=== PATIENT | male | born 1950 | race Caucasian/White ===

== ENCOUNTER 2017-02-28 01:23 | Emergency (ER) | payer MEDICARE, MEDICAID, OTHER ==
[~2017-02-28] VITALS: Ht 170.2 cm; Wt 57.7 kg
[2017-02-28 01:36] VITALS: BP 165/77; PULSE 92; RESP 18; O2SAT 98
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
[2017-02-28 03:48] VITALS: BP 118/75; PULSE 86; RESP 18; O2SAT 96
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
== END 2017-02-28 03:49 ==
LOC: SED 01:23
DX: S29.9XXA Unspecified injury of thorax, initial encounter (principal); S70.02XA Contusion of left hip, initial encounter; Y04.0XXA Assault by unarmed brawl or fight, initial encounter; Y93.89 Activity, other specified; Y92.9 Unspecified place or not applicable; Y99.8 Other external cause status; F17.200 Nicotine dependence, unspecified, uncomplicated

== ENCOUNTER 2017-03-06 09:48 | Emergency (ER) | payer MEDICARE, MEDICAID ==
[~2017-03-06] VITALS: Ht 172.7 cm; Wt 53.2 kg
[2017-03-06 09:49] VITALS: BP 187/95; PULSE 63; RESP 16; O2SAT 97
--- NOTE | 2017-03-06 10:03 | ED.REPORT ---
HPI-General Illness Date of Service Mar 06, 2017 ED Provider: Jhonny Vergara MD 66 y/o male with a hx of throat cancer, cirrhosis, Hep C, bronchitis, HTN, and reported alcohol, marijuana and cocaine use presents to the ED with multiple complaints, including generalized weakness, shaking, inability to focus, diffuse muscle cramps, nausea and dizziness. Yesterday pt experienced exacerbation of his chronic low back pain and was given a pain medication by his friend last night. He doesn't recall the name of the medication but believes it was Tramadol, he took this in combination with drinking heavily at a [place]. He reports that he also smoked crack yesterday. He woke up this morning feeling more fatigued, lightheaded, weak and generally lousy. Pt also reports chills, diaphoresis, and is particularly lightheaded when he stands up quickly, he reports cough and SOB (though both baseline from bronchitis and smoking). Pt denies LOC and fever. No neck stiffness. No rash. He is prescribed blood pressure medications. States that he is not taking them in months because he cannot afford to fill the prescription. He is not sure what blood pressure medication he is supposed to take. Nursing Notes Stated Complaint: VERTIGO Chief Complaint: General Complaint Nursing Notes Reviewed: Yes Allergies: Coded Allergies: No Known Allergies (Unverified , 02/28/17) General Time Seen by MD: 10:00 Chief Complaint Multip medical complaints Hx Obtained From: Patient Arrived By: Walk-in Sudden in Onset?: Yes Onset Occurred: Yesterday Symptom Duration: Constant Severity: Current: Moderate Severity: Maximum: Moderate Recent Healthcare: No recent hospitalization, Recent doctor visit Similar Sx Previous: No Past Medical History Past Medical History liver cancer kidney cancer skin cancer throat cancer bronchitis HTN Hep C Past Surgical History hip surgery facial surgery throat surgery Smoking History Current Every Day Smoker Social History "frequent alcohol use" Drug Use: Cocaine, THC Ambulatory Status Independent Review of Systems Full Review of Systems Constitutional: Reports: Chills, Weakness - generalized, Denies: Fever Respiratory: Reports: Non-productive cough, Shortness of breath GI: Reports: Nausea, Denies: Vomiting Male: Reports Dysuria, Reports Urination increased Skin: Reports Diaphoresis Neurologic: Reports: Dizziness, Shaking, Denies: Change LOC Physical Exam Vital Signs Vital Signs Date Time Temp Pulse Resp B/P Pulse Ox O2 Delivery O2 Flow Rate FiO2 4/21/17 13:53 74 18 177/82 97 Room Air 03/06/17 12:02 36.9 76 17 163/71 95 Room Air 03/06/17 12:02 36.8 76 18 163/71 95 Room Air 03/06/17 10:30 79 18 157/82 95 Room Air 03/06/17 09:49 35.9 63 16 187/95 97 Room Air Initial VS: Reviewed, Vital signs normal Respiratory: Breath sounds normal, Clear to auscultation, No respiratory distress Abdomen / GI: Soft, Non-tender, No guarding, No rebound, No distention General/Constitutional: Awake, Alert, No acute distress, Cooperative, Not toxic appearing Head / Eyes: Atraumatic Right eye absent. Left eye normal, PERRLA. ENT: Atraumatic Dry muscous membranes. Cardiovascular: Heart rate NL, Regular rhythm, Heart sounds NL, No gallop, No murmurs, No rubs Good radial pulses. Neurologic: Oriented X3, Speech NL, No motor deficits, No sensory deficits, CN II - XII intact Grossly neurologically intact. Cranial nerves grossly intact. Speaking in full sentences. Strength 5/5 in lower extremities. Research Physiologist strength 5/5 in upper extremities. No dysmetria finger to nose testing. No pronator drift. Romberg Test negative. Interpretation & Diagnostics Lab Results Interpretation Result Diagram: 03/06/17 1025 03/06/17 1025 Test 03/06/17 10:25 White Blood Count 12.1th/mm3 (3.8-10.1) Red Blood Count 3.44mil/mm3 (4.40-5.80) Hemoglobin 12.1g/dL (13.8-17.2) Hematocrit 34.6% (41.0-50.0) Mean Corpuscular Volume 100.6fL (81-100) Mean Corpuscular Hemoglobin 35.2pg (27.0-35.0) Mean Corpuscular Hemoglobin Concent 35.0% (32.0-37.0) Red Cell Distribution Width 16.6% (12.3-15.4) Platelet Count 274bil/L (150-400) Neutrophils (%) (Auto) 77.8% (40-74) Lymphocytes (%) (Auto) 12.7% (14-46) Monocytes (%) (Auto) 9.0% (4-12) Eosinophils (%) (Auto) 0.1% (0-5) Basophils (%) (Auto) 0.2% (0-3) Sodium Level 135mEq/L (134-144) Potassium Level 4.0mEq/L (3.5-5.2) Chloride Level 98mEq/L (97-108) Carbon Dioxide Level 21mmol/L (18-29) Blood Urea Nitrogen 6mg/dL (8-27) Creatinine 0.39mg/dL (0.76-1.27) Estimat Glomerular Filtration Rate 237mL/min (>59) Glucose Level 145mg/dL (60-99) Calcium Level 8.9mg/dL (8.5-10.1) Magnesium Level 1.9mg/dL (1.6-2.6) Total Bilirubin 1.6mg/dL (0.0-1.2) Aspartate Amino Transf (AST/SGOT) 73U/L (0-50) Alanine Aminotransferase (ALT/SGPT) 54U/L (0-44) Alkaline Phosphatase 82U/L (25-160) Total Protein 9.2g/dL (6.4-8.4) Albumin 3.6g/dL (3.4-5.0) Hold Rodriguez Top Tube Received (Received) ECG Interpretation ECG Interpretation: Normal sinus rhythm. Rate 66 Normal axis Non-specific IVCD No st segment elevation No acute t wave abdnormality No prior ekg for comparison Time: 10:49 Interpreted by: ED physician X-Ray Chest Interpretation Chest Xray Interpretation: IMPRESSION: No acute cardiopulmonary disease. Dictated by: Issac Roy M.D. on 03/06/2017 at 11:36 Approved by: Issac Roy M.D. on 03/06/2017 at 11:37 View: Portable, 1 view Interpretation / Wet Read by: Interpret - Radiologist Re-Eval/Medical Decision Med Decision/Clinical Course 66 y/o male with a hx of throat cancer, cirrhosis, Hep C, bronchitis, HTN, and reported alcohol, marijuana and cocaine use presents to the ED with multiple complaints, including generalized weakness, shaking, inability to focus, diffuse muscle cramps, nausea and dizziness. Yesterday pt experienced exacerbation of his chronic low back pain and was given a pain medication by his friend last night. He doesn't recall the name of the medication but believes it was Tramadol, he took this in combination with drinking heavily at a barbecue. He reports that he also smoked crack yesterday. He woke up this morning feeling more fatigued, lightheaded, weak and generally lousy. Pt also reports chills, diaphoresis, and is particularly lightheaded when he stands up quickly, he reports cough and SOB (though both baseline from bronchitis and smoking). Pt denies LOC and fever. No neck stiffness. No rash. He is prescribed blood pressure medications. States that he is not taking them in months because he cannot afford to fill the prescription. He is not sure what blood pressure medication he is supposed to take. Here in the emergency department the patient was initially quite hypertensive with a systolic blood pressure in the 180s that he is otherwise afebrile and hemodynamically stable. His neurologic examination is completely nonfocal with negative Romberg, normal gait and no lateralizing weakness or dysmetria. Labs: Leukocytosis: 12.1 Hematocrit: 34.6 Good kidney function Transaminases: mildly elevated Bilirubin: mildly elevated No sig electrolyte abnormality. CXR: Obtained, reviewed and interpreted by myself shows no evidence of infiltrates, effusions or pneumothorax. Cardiac and mediastinal silhouette normal. No bony or soft tissue abnormalities. Vision appeared somewhat dehydrated and was treated with IV fluids. Given his hypertension in the setting of smoking crack I opted to treat him with 1 mg of IV Ativan. Thereafter his blood pressure improved substantially into the 130s systolic. After receiving 2 L of IV fluids he reported feeling significantly improved though he did remain with mild lightheadedness. This is not particularly vertiginous in nature though I did offer to try meclizine to see if he would respond to this. He did seem to respond to oral meclizine. I see no evidence of cerebellar stroke or acute problem with the middle ear. I did reexamine him and his ears were normal. I do not feel neuro imaging is indicated. No evidence of end organ damage or acute NV. Hematocrit slightly low but he denies any melena and I do not have a baseline value. Presentation not suggestive of acute blood loss anemia. I discussed with the patient the importance of avoiding drugs, alcohol and especially crack cocaine given his underlying hypertension, age and comorbidities. I suspect his consolation of symptoms is mild factorial related to drug abuse, dehydration, alcohol abuse and not taking his blood pressure medications. I advised him to follow up with his primary care doctor and get back on his blood pressure meds. Prior to discharge follow-up and return precautions were reviewed in detail with the patient who verbalized understanding and agreement with the plan. The patient was discharged in stable condition. Of note, at time of discharge the patient requested narcotic pain medications and became quite upset when we advised the patient that we would not prescribe these. Source of Hx: Old records Time of Eval: 12:01 Re-Evaluation/Progress Note: Rechecked pt. Informed the pt of diagnosis and plan to discharge. Pt understood and agreed witht the plan. F/U and RTER instructions given. All questions answered. Counseled Regarding: Diagnosis, Lab results, Need for follow-up, When/why to return to ED Discharge & Departure Primary Impression: Dizziness Additional Impressions: Alcohol use Nausea Dehydration Noncompliance with medication regimen Cocaine abuse Opiate abuse, episodic Disposition: Home Discharge Condition All VS Reviewed: Yes Condition: Stable Additional Instructions: Thank you for seeking care at the emergency room. It is difficult for us to make definitive diagnoses in the ED but we believe that you are experiencing the effects of alcohol, the pain medication the your friend gave you and smoking crack. He also appeared slightly dehydrated. Our primary goal today in the ED was to evaluate you for any life-threatening conditions. Your evaluation was reassuring. You should follow-up with your primary doctor in the next week. You had high blood pressure today and it is important that you take your blood pressure medications. You should return to the ED immediately if you develop recurrent/worsening symptoms, fevers, vomiting, cough, shortness of breath, chest pain, lightheadedness, weakness or any other concerning signs or symptoms. Thank you for letting us partake in your care today. Referrals: [facility] Scribe Attestation Portions of this note were transcribed by Lyubov Pennington . I, personally performed the history, physical exam and medical decision-making;I reviewed and confirmed the accuracy of the information in the transcribed note. Signed by Lyubov Pennington, Scribe. 03/06/17 1241. copies to: [facility] Jhonny Vergara MD Mar 06, 2017 10:03 Lyubov Rodriguez Mar 06, 2017 10:20 Elena Pennington Mar 06, 2017 12:21
[2017-03-06] MEDS ORDERED: 0.9% Sodium Chloride 1,000 ML IV ONE ×3 (10:18→12:20)
[2017-03-06 10:30] VITALS: BP 157/82; PULSE 79; RESP 18; O2SAT 95
[2017-03-06] MEDS ORDERED: Ondansetron 2 mg/mL 2 mL Inj ONE (10:35)
[2017-03-06 11:04] LABS: BASOPHILS % (AUTO) 0.2 % (0-3); EOSINOPHILS % (AUTO) 0.1 % (0-5); Mean Corpuscular Hemoglobin 35.2 pg (27.0-35.0); Mean Corpuscular Volume 100.6 fL (81-100); NEUTROPHILS % (AUTO) 77.8 % (40-74); Platelet Count 274 bil/L (150-400)
[2017-03-06 11:28] LABS: Magnesium 1.9 mg/dL (1.6-2.6)
--- NOTE | 2017-03-06 11:38 | DRSVH ---
PROCEDURE: X-RAY CHEST ONE VIEW, PORTABLE ([id number]) INDICATIONS: 66 year-old male with shortness of breath. TECHNIQUE: One view of the chest was acquired. COMPARISON: [facility], CR, XR CHEST 2VW, 02/28/2017, 2:32. FINDINGS: Surgical changes and devices: None. Lungs and pleura: No pleural effusions or pneumothorax. Lungs are clear. Mediastinum: Mediastinal contours appear normal. Heart size is normal. There is aortic atheroscler osis. Bones and chest wall: No suspicious bony lesions. Overlying soft tissues appear unremarkable. IMPRESSION: No acute cardiopulmonary disease. Dictated by: Issac Roy M.D. on 03/06/2017 at 11:36 Approved by: Issac Roy M.D. on 03/06/2017 at 11:37
[2017-03-06 12:02] VITALS: BP 163/71; PULSE 76; RESP 17; RESP 18; O2SAT 95
[2017-03-06 13:53] VITALS: BP 177/82; PULSE 74; RESP 18; O2SAT 97
== END 2017-03-06 14:32 | disposition home or self-care (01) ==
LOC: SED 09:48
DX: R42 Dizziness and giddiness (principal); F10.99 Alcohol use, unspecified with unspecified alcohol-induced disorder; R11.0 Nausea; E86.0 Dehydration; F14.10 Cocaine abuse, uncomplicated; F11.20 Opioid dependence, uncomplicated; I10 Essential (primary) hypertension; F17.200 Nicotine dependence, unspecified, uncomplicated; Z86.19 Personal history of other infectious and parasitic diseases; Z91.14 Patient's other noncompliance with medication regimen
CPT/HCPCS: 36415; 71010; 80053; 83735; 85025; 93005; 96361; 96374; 96375; 99285; J2060; J2405; J7030